=== PATIENT | female | born 1975 | race Caucasian/White ===

== ENCOUNTER 2017-10-10 17:12 | Emergency (ER) | payer OTHER, BC ==
[2017-10-10 17:15] VITALS: BMI 23.5
--- NOTE | 2017-10-10 17:37 | ED PDOC ---
Arrival/HPI - General Chief Complaint: Allergic Reaction Time Seen by Provider: 10/10/17 17:35 Historian: Patient - History of Present Illness Narrative History of Present Illness (Text): 10/10/17 17:30 This 42 yo female who denies pmh, presents to this ED for revaluation. Patient stated she had a bee sting x 4 hours ago at work. She stated left index finger became very swollen. Patient stated that her voice started changing, and she felt like she had a "cold" about 1 - 1/2 hour ago, so her boss at her job took her to [facility]. Patient stated she was given multiple medication by injection including Solumedrol, Epi, Pepcid, and Benadryl. Patient was recommended to come to ED from [facility]. Patient came her by BLS. IV line was inserted in the ambulance. Patient stated her symptoms have improved, that her voice is normal. She does not have "cold" symptoms anymore. She only feels mild soreness over the injection areas. Patient denies new complains. Time/Duration: Other (see hpi) Context: Home Past Medical History - Provider Review Nursing Documentation Reviewed: Yes - Infectious Disease Hx of Infectious Diseases: None - Psychiatric Hx Substance Use: No - Anesthesia Hx Anesthesia: No Family/Social History - Physician Review Nursing Documentation Reviewed: Yes Family/Social History: Other (noncontributory) Smoking Status: Light Smoker < 10 Cigarettes Daily Hx Alcohol Use: No Hx Substance Use: No Allergies/Home Meds Allergies/Adverse Reactions: Allergies bee venom protein (honey bee) Adverse Reaction (Severe, Verified 10/10/17 17:17) SHORTNESS OF BREATH swelling Review of Systems - Review of Systems Constitutional: Normal. absent: Fatigue, Weight Change, Fevers, Night Sweats Eyes: Normal ENT: Normal, Other (see hpi) Respiratory: Normal Cardiovascular: Normal Gastrointestinal: Normal Genitourinary Female: Normal Musculoskeletal: Normal Skin: Normal. absent: Rash Neurological: Normal Endocrine: Normal Hemo/Lymphatic: Normal Psychiatric: Normal Physical Exam Vital Signs Temp Pulse Resp BP Pulse Ox 10/10/17 19:08 98.8 F 83 17 122/76 99 10/10/17 17:26 98.3 F 80 18 116/70 98 Temperature: Afebrile Blood Pressure: Normal Pulse: Regular Respiratory Rate: Normal Appearance: Positive for: Well-Appearing, Non-Toxic, Comfortable Pain Distress: None Mental Status: Positive for: Alert and Oriented X 3 - Systems Exam Head: Present: Atraumatic, Normocephalic Pupils: Present: PERRL Extroacular Muscles: Present: EOMI Conjunctiva: Present: Normal Mouth: Present: Moist Mucous Membranes, Normal Lips, Normal Tounge. No: Drooling Pharnyx: Present: Normal. No: ERYTHEMA, EXUDATE, TONSILS ENLARGED, Peritonsilar Swelling, Uvular Deviation, Muffled/Hoarse Voice, Strider, Soft Palate/Uvular Edema Nose (External): Present: Atraumatic Nose (Internal): Present: Normal Inspection. No: Rhinorrhea Neck: Present: Normal Range of Motion, Trachea Midline. No: Meningeal Signs, MIDLINE TENDERNESS, Paraspinal Tenderness, Lymphadenopathy Respiratory/Chest: Present: Clear to Auscultation, Good Air Exchange. No: Respiratory Distress, Accessory Muscle Use, Wheezes, Decreased Breath Sounds, Rales, Retracting, Rhonchi, Tachypneic Cardiovascular: Present: Regular Rate and Rhythm, Normal S1, S2. No: Murmurs Abdomen: No: Tenderness, Distention, Peritoneal Signs Back: Present: Normal Inspection Upper Extremity: Present: Normal Inspection. No: Cyanosis, Edema Lower Extremity: Present: Normal Inspection. No: Edema Neurological: Present: GCS=15, CN II-XII Intact, Speech Normal, Motor Func Grossly Intact, Normal Sensory Function, Normal Cerebellar Funct, Gait Normal, Memory Normal Skin: Present: Warm, Dry, Normal Color. No: Rashes Psychiatric: Present: Alert, Oriented x 3, Normal Insight, Normal Concentration Medical Decision Making ED Course and Treatment: 10/10/17 20:12 Patient remained stable during the course of ED visit. Lungs CTA b/l, no wheezing or rhonchi. Denies sob, or CP. Patient feels well and she wishes to be discharge home soon. Re-evaluation. Patient feels better. Discussed results and plan with patient who expresses understanding. All questions answered and there is agreement with the plan to discharge home with instructions. Patient stable for discharge. Return if symptoms persist or worsen. I reviewed the risk of using Prednisone with patient which includes AVN, osteoporosis, diabetes, glaucoma, renal failure, liver failure, or worsen of rash. She understands she could stop Prednisone once symptoms improves at anytime Re-evaluation Time: 20:13 Reassessment Condition: Re-examined, Improved - Medication Orders Current Medication Orders: Discontinued Medications Sodium Chloride (Sodium Chloride 0.9%) 1,000 mls @ 999 mls/hr IV .Q1H1M STA Stop: 10/10/17 18:42 Last Admin: 10/10/17 18:13 Dose: 999 mls/hr eMAR Start Stop Document 10/10/17 18:13 HI (Rec: 10/10/17 18:13 MI [id number]) Intravenous Solution Start Date 10/10/17 Start Time 18:13 Disposition/Present on Arrival - Present on Arrival Any Indicators Present on Arrival: No History of DVT/PE: No History of Uncontrolled Diabetes: No Urinary Catheter: No History of Decub. Ulcer: No History Surgical Site Infection Following: None - Disposition Have Diagnosis and Disposition been Completed?: Yes Diagnosis: Allergic reaction to bee sting Disposition: HOME/ ROUTINE Disposition Time: 20:13 Patient Plan: Discharge Condition: GOOD Discharge Instructions (ExitCare): Insect Bites and Stings (DC) Additional Instructions: Call private doctor for follow up visit in 1-2 days. Take medication as instructed. Use Epi Pen only if your throat is closing, and you feel you are going to pass out. Return to emergency if symptoms worsen or return. Prescriptions: Epinephrine HCl [Epipen Auto-Injector] 1 appl IM DAILY PRN #1 packet PRN Reason: Anaphylaxis predniSONE [predniSONE Tab] 40 mg PO DAILY #6 tab Referrals: Malinda Childers MD [Primary Care Provider] - Follow up with primary Forms: [employer] (Amharic), WORK NOTE
[2017-10-10] MEDS ORDERED: Sodium Chloride 0.9% 1,000 ML IV STA (17:42)
[2017-10-10 19:11] VITALS: BP 122/76; TEMP 98.8
[2017-10-10 20:36] VITALS: PULSE 85; RESP 21; O2SAT 98
== END 2017-10-10 20:35 | disposition home or self-care (01) ==
LOC: ED 17:12
DX: T63.441A Toxic effect of venom of bees, accidental (unintentional), initial encounter (principal); Y92.89 Other specified places as the place of occurrence of the external cause
CPT/HCPCS: 99285; J7030

== ENCOUNTER 2018-02-09 20:37 | Emergency (ER) | payer OTHER, BC ==
[2018-02-09 22:02] VITALS: BP 117/70; PULSE 80; RESP 18; TEMP 98.4; O2SAT 99; BMI 24.8
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
[2018-02-09 23:10] LABS: ALB/GLOB RATIO 1.4 (1.1-1.8); ALBUMIN 3.9 g/dL (3.0-4.8); ALT/SGPT 25 U/L (7-56); AST/SGOT 19 U/L (14-36); BLOOD UREA NITROGEN 8 mg/dL (7-21); GFR NON-AFRICAN AMERICAN > 60
[2018-02-09 23:16] LABS: GRAN % 62.3 % (50.0-68.0); HEMOGLOBIN 12.7 g/dL (12.0-16.0); MEAN CELL VOLUME 91.4 fl (80.0-105.0); MEAN CORPUSCULAR HEMOGLOBIN 30.4 pg (25.0-35.0); MEAN CORPUSCULAR HGB CONC 33.2 g/dl (31.0-37.0); MEAN PLATELET VOLUME 10.5 fl (7.0-11.0); RBC 4.18 10^6/uL (3.5-6.1); RED CELL DISTRIBUTION WIDTH 13.2 % (11.5-14.5)
[2018-02-09 23:17] LABS: BASO # 0.02 K/mm3 (0.0-2.0); BASO % 0.2 % (0.0-3.0); EOS # 0.2 (0.0-0.7); EOS % 1.9 % (1.5-5.0); GRAN # 5.6 (1.4-6.5); LYMPH # 2.6 (1.2-3.4); MONO # 0.6 (0.1-0.6); MONO % 6.6 % (1.0-6.0)
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
== END 2018-02-10 02:02 | disposition home or self-care (01) ==
LOC: ED 20:37
DX: M25.511 Pain in right shoulder (principal); M54.5 Low back pain; F17.210 Nicotine dependence, cigarettes, uncomplicated
CPT/HCPCS: 72100; 73030; 73110; 73130; 80053; 85025; 96372; 99284; J1885